=== PATIENT | female | born 1965 | race Caucasian/White ===

== ENCOUNTER → 2016-04-28 | Outpatient (CLI) | payer BC ==
[~2016-04-28] MED LIST: AMIT10TA6 PO; AMT25 PO; ESCI10TA17 PO; GLC/500 PO; LSN20 PO; SUMA100T16 PO
--- NOTE | 2016-04-28 15:58 | MAMMOGRAPHY REPORT ---
BILATERAL DIGITAL SCREENING MAMMOGRAM TOMOSYNTHESIS WITH CAD: 04/28/2016 CLINICAL HISTORY: Routine screening. Patient has no complaints. TECHNIQUE: Breast tomosynthesis in addition to standard 2D mammography was performed. Current study was also evaluated with a Computer Aided Detection (CAD) system. COMPARISON: Comparison is made to exams dated: 08/14/2015 breast MRI, 04/25/2015 mammogram, 09/27/2014 breast MRI, and 04/23/2014 mammogram - [facility]. BREAST COMPOSITION: The tissue of both breasts is heterogeneously dense, which may obscure small ma sses. FINDINGS: The parenchymal pattern is unchanged. There are stable bilateral round and punctate micr ocalcifications. No developing mass, architectural distortion or cluster of suspicious microcalcifi cations is seen in either breast. IMPRESSION: ACR BI-RADS CATEGORY 2: BENIGN There is no mammographic evidence of malignancy. A 1 year screening mammogram is recommended. The p atient will receive written notification of the results. Approximately 10% of breast cancers are not detected with mammography. A negative mammographic repor t should not delay biopsy if a clinically suggestive mass is present. Kay Ratliff M.D. ay/:04/28/2016 15:44:33 General Helper: Zoya BRYAN(Renée)(Camryn), [facility] letter sent: Normal 1/2 BI-RADS Code: ACR BI-RADS Category 2: Benign
== END | disposition home or self-care (01) ==
LOC: C.MAMM 07:36
PROVIDERS: ATTEND Obstetrics & Gynecology
DX: Z12.31 Encounter for screening mammogram for malignant neoplasm of breast (principal)

== ENCOUNTER → 2016-08-08 | Outpatient (CLI) | payer BC ==
[2016-08-08 07:57] LABS: HEMATOCRIT 43.4 % (37-47); MEAN CORPUSCULAR HEMOGLOBIN 30.7 pg (25-34); MEAN CORPUSCULAR HGB CONC 34.1 g/dl (32-36); MEAN PLATELET VOLUME 9.6 fL (7.4-10.4); PLATELET COUNT 347 K/uL (130-400); RED BLOOD COUNT 4.82 M/uL (4.2-5.4); WHITE BLOOD COUNT 8.48 K/uL (4.8-10.8)
[2016-08-08 09:21] LABS: ESTIMATED AVERAGE GLUCOSE 111 mg/dl; HA1C FLAG Normal (Normal)
[2016-08-08 09:23] LABS: BLOOD UREA NITROGEN 12 mg/dl (7-18); BUN/CREATININE RATIO 18.3 (10-20); CALCIUM 8.7 mg/dl (8.5-10.1); CARBON DIOXIDE 27 mmol/L (21-32); CHLORIDE 107 mmol/L (98-107); CREATININE 0.63 mg/dl (0.60-1.20); GLUCOSE 94 mg/dl (70-99); POTASSIUM 4.2 mmol/L (3.5-5.1); SODIUM 141 mmol/L (136-145)
[2016-08-08 09:31] LABS: CHOLESTEROL 170 mg/dl (0-200); CHOLESTEROL/HDL RATIO 2.5; FERRITIN 107.7 ng/ml (8.0-388.0); HDL CHOLESTEROL 67 mg/dl; LDL CHOLESTEROL CALCULATED 89 mg/dl; TRIGLYCERIDES 69 mg/dl (0-150); VERY LOW DENSITY LIPOPROT CALC 14 mg/dl
--- NOTE | 2016-10-14 09:14 | EDITING REQUIRED CODING QUERY ---
TREATMENT RENDERED WITHOUT A DIAGNOSIS To promote full compliance with coding requirements relating to patient care, physician participation is requested in all cases of oil well directional surveyor uncertainty. Please assist us with providing a diagnosis/symptom for the test(s) below: A diagnosis/symptom was not documented on your Order. A valid diagnosis/symptom is required to bill all insurances. Please remember that we are unable to code a diagnosis of rule out, probable, possible, questionable, or suspected. Tests that require a diagnosis: * Glycated Hemoglobin DIAGNOSIS: * CBC DIAGNOSIS: * FERRITIN DIAGNOSIS: * BASIC METABOLIC PROFILE DIAGNOSIS: * LIPIDS DIAGNOSIS: Provider Signature: Date: Thank you Mirta Hansen [employer] Once completed, please kindly fax back to [phone] For questions please call [phone]
--- NOTE | 2016-11-04 05:54 | CODING QUERY NO DIAGNOSIS ---
TREATMENT RENDERED WITHOUT A DIAGNOSIS To promote full compliance with coding requirements relating to patient care, physician participation is requested in all cases of line cook uncertainty. Please assist us with providing a diagnosis/symptom for the test(s) below: A diagnosis/symptom was not documented on your Order. A valid diagnosis/symptom is required to bill all insurances. Please remember that we are unable to code a diagnosis of rule out, probable, possible, questionable, or suspected. Tests that require a diagnosis: * CBC WO DIFF DIAGNOSIS: * FERRITIN DIAGNOSIS: * LIPID PROFILE DIAGNOSIS: * PARTIAL RENAL PROFILE DIAGNOSIS: * HEMOGLOBIN DIAGNOSIS: Provider Signature: Date: Thank you Mirta Hansen [employer] Once completed, please kindly fax back to [phone] For questions please call [phone]
== END | disposition home or self-care (01) ==
LOC: C.LAB 07:32
DX: Z01.89 Encounter for other specified special examinations (principal)

== ENCOUNTER → 2016-10-19 | Outpatient (CLI) | payer BC ==
[~2016-10-19] MED LIST changes: +GADAVIST IV PRN
--- NOTE | 2016-10-20 14:36 | MAMMOGRAPHY REPORT ---
BREAST MRI OF BOTH BREASTS : 10/19/2016 CLINICAL HISTORY: 50-year-old woman with a strong family history of breast cancer = mother, and dense breasts, presents for additional screening. COMPARISON: Comparison is made to exams dated: 04/25/2015 mammogram, 09/27/2014 breast MRI, 04/24/2013 mammogram, 04/21/2012 mammogram, 08/14/2015 breast MRI, and 04/28/2016 mammogram - [facility]. TECHNIQUE: Using a 1.5 Dalila magnet and dedicated breast coil, multisequence axial images were obtain ed through the breasts. After uneventful IV administration of 7 mL of Gadavist, dynamic multiphase c ontrast-enhanced axial images, and sagittal postcontrast were obtained. Temporal subtraction axial i mages and 3-D MIP images are provided. Everything was then reviewed on a 3-D workstation, [employer]. FINDINGS: There is moderate to marked background parenchymal enhancement, with tiny round and oval en hancing foci diffusely throughout each breast, which lowers the sensitivity of the exam for non-mass enhancement. Within this limitation, all of the bilateral enhancing foci appear similar in number, d istribution and size comparing to the prior MRIs. There is no new suspicious enhancing mass, suspici ous non-mass enhancement or suspicious kinetics in either breast. No focal skin thickening or nipple retraction. The retromammary fat is intact bilaterally. No suspicious axillary adenopathy bilatera lly. There has been no significant interval change compared to prior MRIs. IMPRESSION: ACR BI-RADS CATEGORY 2: BENIGN Stable breast MRI examination. There is moderate to marked background parenchymal enhancement, lower ing the sensitivity of the exam. Within this limitation, there is no MRI evidence of malignancy bila terally. Recommend continuation of annual screening mammography and screening MRI schedule. The patient will receive written notification of the results. Kay Ratliff M.D. ay/:10/19/2016 21:32:04 Intertype Operator: leadlighter, [facility] letter sent: Normal 1/2 BI-RADS Code: ACR BI-RADS Category 2: Benign
== END | disposition home or self-care (01) ==
LOC: C.MRI 09:30
PROVIDERS: ATTEND Obstetrics & Gynecology
DX: N60.19 Diffuse cystic mastopathy of unspecified breast (principal); Z80.3 Family history of malignant neoplasm of breast

== ENCOUNTER → 2016-10-26 | Day surgery (SDC) | payer BC ==
[2016-10-23 07:30] VITALS: BMI 27.0
[~2016-10-26] VITALS: Ht 162.6 cm; Wt 72.7 kg
[~2016-10-26] MED LIST changes: -AMT25 PO; +COAGULATION FACTOR VIIA IV SCH; -GADAVIST IV PRN; +LIDOCAINE HCL 2% 2 ML VIAL (20MG/ML) ONE; +PROPOFOL IV EMULSION 10 MG/ML 20 ML VIAL IV ONE; +SODIUM CHLORIDE 0.9% 500ML 500 ML IV ONE; +[UNRECOGNIZED DRUG - REMARK] SCH
[2016-10-26 08:01] VITALS: Ht 162.6 cm; Wt 72.7 kg
--- NOTE | 2016-10-26 08:42 | Endo History and Physical ---
History & Physical Date of Service: Oct 26, 2016. Chief Complaint: screening Referring Physician: Dr. Miranda History of Present Illness Screening in patient with coagulopathy. Past Surgical History Hx Cardiac Surgery: No Hx Internal Defibrillator: No Hx Pacemaker: No Hx Abdominal Surgery: Yes (2 C-SECTIONS WITH T.L., LAP VERO) Hx of Implantable Prosthesis: No Hx Post-Op Nausea and Vomiting: No Hx Cancer Surgery: No Hx Thoracic Surgery: No Hx Orthopedic: No Hx Urinary Tract Surgery: No Family History None Social History Smoking Status: Never Smoker Hx Substance Use: No Hx Alcohol Use: Yes (SOCIAL) Allergies Coded Allergies: No Known Allergies (Verified , 10/26/16) Current Medications Reported Home Medications Medications Dose Route/Sig Max Daily Dose Days Date Category Imitrex (Sumatriptan Succinate) 100 Mg Tab 100 Mg PO PRN PRN 10/23/16 Reported Lisinopril 20 Mg Tab 20 Mg PO QAM 10/23/16 Reported Lexapro (Escitalopram Oxalate) 10 Mg Tab 10 Mg PO HS 10/23/16 Reported Glucophage (Metformin Hcl) 500 Mg Tab 500 Mg PO TID 10/23/16 Reported Elavil (Amitriptyline Hcl) 10 Mg Tab 30 Mg PO HS 10/23/16 Reported Vital Signs Weight (Kilograms): 72.73 Height (Feet): 5 Height (Inches): 4 Date Time Temp Pulse Resp B/P (MAP) Pulse Ox O2 Delivery O2 Flow Rate FiO2 10/26/16 08:17 36.2 64 18 132/78 (96) 95 Room Air Physical Exam General Appearance: WD/WN, no apparent distress Respiratory/Chest: Auscultation: breath sounds normal, no wheezing Cardiovascular: Heart Auscultation: RRR, no murmurs Assessment and Plan Colonoscopy today.
--- NOTE | 2016-10-26 09:36 | Discharge Instructions ---
Endoscopy Patient Instructions Date / Procedure(s) Performed Oct 26, 2016. Colonoscopy Allergy Information Coded Allergies: No Known Allergies (Verified , 10/26/16) Discharge Date / Findings Oct 26, 2016. Normal examination. Medication Instructions Stopped Medication(s): all medication was stopped. Restart Stopped Medication(s): Restart medications today. Provider Instructions Activity Restrictions - No exercising or heavy lifting for 24 hours. - Do not drink alcohol the day of the procedure. - Do not drive a car or operate machinery until the day after the procedure. - Do not make any important decisions or sign important papers in 24 hours after the procedure. Following Day: - Return to full activity which may include returning to work/school. Diet Start your diet with liquids and light foods (jello, soup, juice, toast). Then eat your usual diet if not nauseated. Treatment For Common After Affects For mild abdominal pain, bloating, or excessive gas: - Rest - Eat lightly - Lie on right side Follow-Up Information Follow-up with Dr. Miranda as scheduled Anesthesia Information What You Should Know You have had a procedure that required some medicine to reduce anxiety and discomfort. This treatment is called moderate sedation. After receiving the treatment, you may be sleepy, but you will be able to breathe on your own. The effects of the treatment may last for several hours. Follow these instructions along with Activity/Diet recommendations noted above: * Do NOT do anything where dizziness or clumsiness would be dangerous. * Rest quietly at home today, then you can be up and about tomorrow. * Have a responsible person stay with you the rest of today. * You may have had an I.V. today. If so, you may take the dressing off later today. Recommendations Call your doctor if: * Trouble breathing * Continuous vomiting for more than 24 hours * Temperature above 101 degrees * Severe abdominal pain or bloating * Pain not relieved by pain medicine ordered * There is increased drainage or redness from any incision * A large amount of rectal bleeding greater than 2-3 tablespoons. (If you had a polyp/s removed or have hemorrhoids, a small amount of blood - from the rectum is to be expected.) * You have any unanswered questions or concerns. IN THE EVENT OF A SERIOUS EMERGENCY, GO TO THE NEAREST EMERGENCY ROOM Your discharge instructions were prepared by provider Amarjit Herr. Patient Instructions Signature Page Katty Hernandez Patient (or Guardian) Signature/Date: I have read and understand the instructions given to me by my caregivers. Caregiver/RN/Doctor Signature/Date: The above-named patient and/or guardian has received patient instructions on this date. + Original Patient Signature Page (only) stays with chart. Please make copy for patient.
--- NOTE | 2016-10-26 09:50 | Anesthesiology Progress Note ---
Anesthesia Post Op Note Date & Time Oct 26, 2016 at 09:50 Vital Signs Pain Intensity: 0 Vital Signs Past 12 Hours Date Time Temp Pulse Resp B/P (MAP) Pulse Ox O2 Delivery O2 Flow Rate FiO2 10/26/16 09:46 65 20 113/75 (88) 98 Room Air 10/26/16 09:27 68 20 96/58 (71) 97 Room Air 10/26/16 08:17 36.2 64 18 132/78 (96) 95 Room Air Notes Mental Status: alert / awake / arousable, participated in evaluation Pt Amnestic to Procedure: Yes Nausea / Vomiting: adequately controlled Pain: adequately controlled Airway Patency, RR, SpO2: stable & adequate BP & HR: stable & adequate Hydration State: stable & adequate Anesthetic Complications: no major complications apparent
[2016-10-26 09:57] VITALS: BP 114/76; PULSE 58; O2SAT 99
--- NOTE | 2016-10-27 00:14 | GI REPORT ---
Procedure Date: 10/26/2016 8:53 AM Procedure: Colonoscopy Indications: Screening for colorectal malignant neoplasm Medicines: Propofol per Anesthesia Complications: No immediate complications. Estimated blood loss: None. Estimated Blood Loss: Estimated blood loss: none. Procedure: Pre-Anesthesia Assessment: - Prior to the procedure, a History and Physical was performed, and patient medications, allergies and sensitivities were reviewed. The patient's tolerance of previous anesthesia was reviewed. - ASA Grade Assessment: III - A patient with severe systemic disease. After I obtained informed consent, the scope was passed under direct vision. Throughout the procedure, the patient's blood pressure, pulse, and oxygen saturations were monitored continuously. The scope was introduced through the anus and advanced to the terminal ileum, with identification of the appendiceal orifice and IC valve. The colonoscopy was performed with ease. The patient tolerated the procedure well. The quality of the bowel preparation was excellent. The bowel preparation used was split dose MIralax. Findings: The entire examined colon appeared normal. Impression: - The entire examined colon is normal to the terminal ileum with retroflexed views of the colon and terminal ileum. - No specimens collected. Recommendation: - Repeat colonoscopy in 10 years for screening purposes. - Discharge patient to home (with escort). Amarjit Herr M.D. Amarjit Herr MD 10/26/2016 9:29:09 AM This report has been signed electronically. Note Initiated On: 10/26/2016 8:53 AM I attest to the content of the Intraoperative Record and orders documented therein, exceptions below
== END | disposition home or self-care (01) ==
LOC: C.GI 07:20
PROVIDERS: ATTEND Internal Medicine Gastroenterology
DX: Z12.11 Encounter for screening for malignant neoplasm of colon (principal); D68.9 Coagulation defect, unspecified; Z79.84 Long term (current) use of oral hypoglycemic drugs; Z79.899 Other long term (current) drug therapy

== ENCOUNTER → 2017-02-06 | Outpatient (CLI) | payer BC ==
[~2017-02-06] MED LIST changes: -COAGULATION FACTOR VIIA IV SCH; -LIDOCAINE HCL 2% 2 ML VIAL (20MG/ML) ONE; -PROPOFOL IV EMULSION 10 MG/ML 20 ML VIAL IV ONE; -SODIUM CHLORIDE 0.9% 500ML 500 ML IV ONE; -[UNRECOGNIZED DRUG - REMARK] SCH
[2017-02-06 10:01] LABS: ESTIMATED AVERAGE GLUCOSE 111 mg/dl; HA1C FLAG Normal (Normal)
[2017-02-06 10:15] LABS: BLOOD UREA NITROGEN 14 mg/dl (7-18); CARBON DIOXIDE 26 mmol/L (21-32); CHLORIDE 103 mmol/L (98-107); CREATININE 0.64 mg/dl (0.60-1.20); GLUCOSE 96 mg/dl (70-99); POTASSIUM 4.1 mmol/L (3.5-5.1); SODIUM 136 mmol/L (136-145)
== END | disposition home or self-care (01) ==
LOC: C.LAB 09:05
DX: I10 Essential (primary) hypertension (principal); E88.81 Metabolic syndrome and other insulin resistance

== ENCOUNTER → 2017-02-08 | Outpatient (CLI) | payer BC | END | disposition home or self-care (01) | LOC: C.PAPS 18:02 | PROVIDERS: ATTEND Obstetrics & Gynecology | DX: Z01.419 Encounter for gynecological examination (general) (routine) without abnormal findings (principal) ==

== ENCOUNTER → 2017-02-27 | Outpatient (CLI) | payer BC ==
[~2017-02-27] MED LIST changes: +LISI-726 PO; -LSN20 PO
[2017-02-27 11:35] LABS: BLOOD UREA NITROGEN 12 mg/dl (7-18); CALCIUM 9.3 mg/dl (8.5-10.1); CARBON DIOXIDE 24 mmol/L (21-32); CREATININE 0.63 mg/dl (0.60-1.20); GLUCOSE 103 mg/dl (70-99); POTASSIUM 4.1 mmol/L (3.5-5.1); SODIUM 134 mmol/L (136-145)
== END | disposition home or self-care (01) ==
LOC: C.LAB 10:43
DX: I10 Essential (primary) hypertension (principal); D68.9 Coagulation defect, unspecified

== ENCOUNTER → 2017-05-04 | Outpatient (CLI) | payer BC ==
[~2017-05-04] MED LIST changes: -LISI-726 PO; +LSN20 PO
--- NOTE | 2017-05-04 15:14 | MAMMOGRAPHY REPORT ---
BILATERAL DIGITAL SCREENING MAMMOGRAM TOMOSYNTHESIS WITH CAD: 05/04/2017 CLINICAL HISTORY: Routine screening. Patient has no complaints. TECHNIQUE: Breast tomosynthesis in addition to standard 2D mammography was performed. Current study was also evaluated with a Computer Aided Detection (CAD) system. COMPARISON: Comparison is made to exams dated: 04/28/2016 mammogram, 04/25/2015 mammogram, 04/23/2014 m ammogram, 04/24/2013 mammogram, 04/21/2012 mammogram, and 04/20/2011 mammogram - [facility]. BREAST COMPOSITION: The tissue of both breasts is heterogeneously dense, which may obscure small mas ses. FINDINGS: There is a focal asymmetry in the 9:00 to 10:00 posterior left breast in the retroglandula r fat that could represent normal overlapping tissue, although additional spot compression tomosynthe sis views and possible ultrasound are recommended. There are stable benign-appearing round and punctate microcalcifications in the medial left breast. N o other suspicious mass, architectural distortion or cluster of suspicious microcalcifications is see n. IMPRESSION: ACR BI-RADS CATEGORY 0: INCOMPLETE EVALUATION: NEED ADDITIONAL IMAGING EVALUATION The focal asymmetry in the 9:00 to 10:00 posterior left breast needs additional evaluation. The patient will be called to schedule an appointment. Approximately 10% of breast cancers are not detected with mammography. A negative mammographic report should not delay biopsy if a clinically suggestive mass is present. Kay Ratliff M.D. ay/:05/04/2017 09:04:30 Piece Work Checker: Raquel BRYAN(Renée)(Camryn), [facility] letter sent: Addl Imaging 0 BI-RADS Code: ACR BI-RADS Category 0: Incomplete Evaluation: Need Additional Imaging Evaluation
== END | disposition home or self-care (01) ==
LOC: C.MAMM 08:07
PROVIDERS: ATTEND Obstetrics & Gynecology
DX: Z12.31 Encounter for screening mammogram for malignant neoplasm of breast (principal); N60.19 Diffuse cystic mastopathy of unspecified breast; Z80.3 Family history of malignant neoplasm of breast; N64.89 Other specified disorders of breast

== ENCOUNTER → 2017-05-07 | Outpatient (CLI) | payer BC ==
--- NOTE | 2017-05-07 13:36 | MAMMOGRAPHY REPORT ---
UNILATERAL LEFT DIGITAL DIAGNOSTIC MAMMOGRAM TOMOSYNTHESIS AND TARGETED LEFT ULTRASOUND: 05/07/2017 CLINICAL HISTORY: Callback from screening mammogram for left breast focal asymmetry. TECHNIQUE: Breast tomosynthesis in addition to standard 2D mammography was performed. Spot compress ion left CC and MLO 2-D and tomosynthesis images were obtained. COMPARISON: Comparison is made to exams dated: 05/04/2017 mammogram, 10/19/2016 breast MRI, 04/28/2016 mammogram, 04/25/2015 mammogram, and 04/23/2014 mammogram - [facility]. BREAST COMPOSITION: The tissue of the left breast is heterogeneously dense, which may obscure small masses. FINDINGS: The previously described focal asymmetry in the left 9 to 10:00 breast posteriorly effaces to a baseline appearance on the additional spot compression tomosynthesis views, and has the appearan ce of normal fibroglandular tissue on the tomosynthesis images. No suspicious mass, architectural di stortion, or other suspicious finding is seen in this region on the additional images. Targeted ultrasound was performed of the left 9 to 10:00 breast medially in the region of the mammogr aphic asymmetry. Sonographically normal tissue is seen in this region, without evidence of a mass or other suspicious sonographic abnormality. IMPRESSION: ACR BI-RADS CATEGORY 2: BENIGN, TARGETED ULTRASOUND ACR BI-RADS CATEGORY 2: BENIGN The left breast asymmetry effaces on the additional spot compression views, without corresponding mulugeta picious sonographic abnormality evident. Findings are benign and compatible with normal fibroglandul ar tissue. There is no mammographic or targeted sonographic evidence of malignancy. A 1 year screeni ng mammogram is recommended. The patient has been verbally notified of the results. Approximately 10% of breast cancers are not detected with mammography. A negative mammographic report should not delay biopsy if a clinically suggestive mass is present. Geovanna Holley M.D. ah/:05/07/2017 11:06:21 Barrel Dedenting Machine Operator: Rivka QUEEN)(Camryn), [facility] letter sent: Normal 1/2 BI-RADS Code: ACR BI-RADS Category 2: Benign Ultrasound BI-RADS: ACR BI-RADS Category 2: Benign
== END | disposition home or self-care (01) ==
LOC: C.MAMM 10:41
PROVIDERS: ATTEND Obstetrics & Gynecology
DX: R92.2 Inconclusive mammogram (principal)

== ENCOUNTER → 2017-05-28 | Outpatient (CLI) | payer BC ==
[2017-05-28 16:22] LABS: BLOOD UREA NITROGEN 15 mg/dl (7-18); CALCIUM 9.1 mg/dl (8.5-10.1); CARBON DIOXIDE 27 mmol/L (21-32); CREATININE 0.66 mg/dl (0.60-1.20); GLUCOSE 97 mg/dl (70-99); POTASSIUM 3.7 mmol/L (3.5-5.1); SODIUM 135 mmol/L (136-145)
== END | disposition home or self-care (01) ==
LOC: C.LAB 14:49
DX: D68.9 Coagulation defect, unspecified (principal); I10 Essential (primary) hypertension

== ENCOUNTER → 2017-09-29 | Outpatient (CLI) | payer BC ==
[~2017-09-29] MED LIST changes: +GADAVIST IV PRN; +LISI-726 PO; -LSN20 PO
--- NOTE | 2017-09-30 07:57 | MAMMOGRAPHY REPORT ---
BREAST MRI OF BOTH BREASTS: 09/29/2017 CLINICAL HISTORY: 51-year-old woman with a family history of breast cancer presents for bilateral fran ast MRI for additional screening. The patient also has a history of dense breasts. COMPARISON: Comparison is made to exams dated: 05/07/2017 mammogram, 05/07/2017 ultrasound, 05/04/2017 ma mmogram, 10/19/2016 breast MRI, 04/28/2016 mammogram, and 08/14/2015 breast MRI - [facility]. TECHNIQUE: Using a 1.5 Dalila magnet and dedicated breast coil, multisequence axial images were obtain ed through the breasts. After uneventful IV administration of 7.5 mL of Gadavist, dynamic multiphase contrast-enhanced axial images, and sagittal postcontrast were obtained. Temporal subtraction axial images and 3-D MIP images are provided. Everything was then reviewed on a 3-D workstation, [employer]. FINDINGS: Right breast: There is moderate nodular background parenchymal enhancement of the right breast. The enhancing foci scattered throughout the right breast appear similar to the prior breast MRIs in numbe r and distribution. No increasingly prominent focus of enhancement, suspicious enhancing mass, non-m ass enhancement or suspicious kinetics identified. No focal skin thickening. The nipple areolar com plex is intact. No suspicious right axillary lymphadenopathy. Left breast: There is moderate nodular background parenchymal enhancement of the left breast. The en hancing foci scattered throughout the left breast appear similar to the prior breast MRIs in number a nd distribution. No increasingly prominent focus of enhancement, suspicious enhancing mass, non-mass enhancement or suspicious kinetics identified. No focal skin thickening. The nipple areolar comple x is intact. No suspicious left axillary lymphadenopathy. IMPRESSION: ACR BI-RADS CATEGORY 2: BENIGN 1. Stable breast MRI, without MRI evidence of malignancy. Recommend continuation of annual screenin g mammography schedule with possible addition of screening breast MRI, given the family history of br east cancer and dense breasts. Next screening mammogram due April/2018. The patient will receive written notification of the results. Kay Ratliff M.D. ay/:09/29/2017 22:38:38 Nurse Ob: transport medic, [facility] letter sent: Normal 1/2 BI-RADS Code: ACR BI-RADS Category 2: Benign
== END | disposition home or self-care (01) ==
LOC: C.MRI 11:45
PROVIDERS: ATTEND Obstetrics & Gynecology
DX: N60.19 Diffuse cystic mastopathy of unspecified breast (principal); Z80.3 Family history of malignant neoplasm of breast; R63.5 Abnormal weight gain

== ENCOUNTER → 2017-10-23 | Outpatient (CLI) | payer BC ==
[~2017-10-23] MED LIST changes: -GADAVIST IV PRN
[2017-10-23 09:12] LABS: BLOOD UREA NITROGEN 12 mg/dl (7-18); CALCIUM 8.7 mg/dl (8.5-10.1); CARBON DIOXIDE 24 mmol/L (21-32); CHOLESTEROL 184 mg/dl (0-200); CREATININE 0.67 mg/dl (0.60-1.20); GLUCOSE 101 mg/dl (70-99); LDL CHOLESTEROL CALCULATED 103 mg/dl; POTASSIUM 4.1 mmol/L (3.5-5.1); SODIUM 136 mmol/L (136-145)
[2017-10-23 09:32] LABS: HEMOGLOBIN A1C 5.6 % (4.5-5.6)
== END | disposition home or self-care (01) ==
LOC: C.LAB 08:04
DX: I10 Essential (primary) hypertension (principal); E88.81 Metabolic syndrome and other insulin resistance